=== PATIENT | male | born 1980 | race Caucasian/White ===

== ENCOUNTER 2019-01-27 12:58 | Emergency (ER) | payer OTHER ==
[2019-01-27] MEDS ORDERED: DIPHENHYDRAMINE 25 MG TAB/CAP ONE (13:43)
[2019-01-27] MEDS ORDERED: SMZ./TMP. 800/160 MG TABLET ONE (13:43)
[2019-01-27] MEDS ORDERED: FAMOTIDINE 20 MG TAB ONE (13:44)
[2019-01-27] MEDS ORDERED: DOXYCYCLINE 100 MG CAP PO ONE (13:44)
[2019-01-27] MEDS ORDERED: predniSONE 20 MG TAB ONE (13:44)
--- NOTE | 2019-01-27 14:46 | ER ---
Nurse's Notes [facility] Name: Catalino Amaro III Age: 38 yrs Sex: Male : 1980 Arrival Date: 01/27/2019 Time: 13:00 Bed 13 Private MD: Diagnosis: Impetigo;Allergic contact dermatitis;Irritant contact dermatitis;Cellulitis and acute lymphangitis of other parts of limb Presentation: 01/27 13:02 Presenting complaint: Patient states: exposed to poison maryam a week ago. c/o rash and sv swelling to the RLE. Transition of care: patient was not received from another setting of care. Onset of symptoms was January 18, 2019. Risk Assessment: Do you want to hurt yourself or someone else? Patient reports no desire to harm self or others. Care prior to arrival: None. 13:02 Method Of Arrival: Ambulatory sv 13:02 Acuity: TIMA 4 sv 15:29 Initial Sepsis Screen: Does the patient meet any 2 criteria? No. Patient's initial bp sepsis screen is negative. Does the patient have a suspected source of infection? No. Patient's initial sepsis screen is negative. Triage Assessment: 13:02 General: Appears in no apparent distress. uncomfortable, Behavior is calm, cooperative, sv appropriate for age. Neuro: Level of Consciousness is awake, alert, obeys commands, Gait is steady. Respiratory: Respiratory effort is even, unlabored, Respiratory pattern is regular, symmetrical. Derm: Reports rash. Historical: - Allergies: 13:03 No Known Allergies; sv - PMHx: 13:03 None; sv - PSHx: 13:03 cataract; sv - Immunization history:: Adult Immunizations up to date. - Social history:: Smoking status: Patient/guardian denies using tobacco. - Ebola Screening: : No symptoms or risks identified at this time. - Family history:: not pertinent. Screenin:40 Abuse screen: Denies threats or abuse. Denies injuries from another. Nutritional bp screening: No deficits noted. Tuberculosis screening: No symptoms or risk factors identified. Fall Risk None identified. Assessment: 13:10 General: SEE TRIAGE NOTE. bp 15:28 Reassessment: PT D/C HOME AMBULATORY, DX WITH IMPETIGO. bp Vital Signs: 13:03 BP 142 / 92; Pulse 78; Resp 16; Temp 98.5; Pulse Ox 98% ; Weight 95.25 kg; Height 5 ft. sv 11 in. (180.34 cm); 15:00 BP 137 / 89; Pulse 85; Resp 17; Temp 98; Pulse Ox 98% ; bp 13:03 Body Mass Index 29.29 (95.25 kg, 180.34 cm) ED Course: 13:00 Patient arrived in ED. as 13:03 Triage completed. sv 13:03 Arm band placed on. 13:09 Donavon Malik MD is Attending Physician. [facility] 13:30 Kavin Carlos, RN is Primary Nurse. bp 13:40 Patient has correct armband on for positive identification. Bed in low position. Call bp light in reach. Side rails up X2. 14:54 US Extremity Venous Unilateral Ltd In Process Unspecified. EDMS 15:28 No provider procedures requiring assistance completed. Patient did not have IV access bp during this emergency room visit. Administered Medications: 13:40 Drug: Doxycycline 100 mg Route: PO; bp 15:32 Follow up: Response: No adverse reaction bp 13:40 Drug: Bactrim (160 mg-800 mg (DS) 1 tablet Route: PO; bp 15:31 Follow up: Response: No adverse reaction bp 13:40 Drug: predniSONE 60 mg Route: PO; bp 15:31 Follow up: Response: No adverse reaction bp 13:40 Drug: Pepcid 40 mg Route: PO; bp 15:30 Follow up: Response: No adverse reaction bp 13:40 Drug: Benadryl 50 mg Route: PO; bp 15:30 Follow up: Response: No adverse reaction bp Outcome: 14:44 Discharge ordered by . [facility] 15:29 Discharged to home ambulatory. bp 15:29 Condition: stable 15:29 Discharge instructions given to patient, Instructed on discharge instructions, follow up and referral plans. medication usage, Demonstrated understanding of instructions, follow-up care, medications, Prescriptions given X 4. 15:32 Patient left the ED. bp Signatures: Dispatcher [employer] Atiya Carroll RN RN sv Anderson, Corey, MD MD cha Martinez, Amelia as Kavin Carlso, RN RN bp Corrections: (The following items were deleted from the chart) 13:05 13:03 Pulse 78bpm; Resp 16bpm; Pulse Ox 98%; Temp 98.5F; 95.25 kg; Height 5 ft. 11 in.; sv BMI: 29.2; sv
--- NOTE | 2019-01-27 14:46 | EDPHYS ---
Physician Documentation [facility] Name: Catalino Amaro III Age: 38 yrs Sex: Male : 1980 Arrival Date: 01/27/2019 Time: 13:00 Bed 13 Private MD: ED Physician Donavon Malik HPI: 01/27 13:29 This 38 yrs old Male presents to ER via Ambulatory with complaints of Rash - felipe Poison Tonya. 13:29 The patient's rash thought to be caused by Dermatitis Contact allergy. The rash is felipe located on the right leg and left leg. The rash can be described as crusted, diffuse, erythematous, raised. Onset: The symptoms/episode began/occurred 1 week(s) ago. Associated signs and symptoms: Pertinent positives: burning sensation, itching, Pain. Severity of symptoms: At their worst the symptoms were mild moderate in the emergency department the symptoms are unchanged. Treatment given at home: Benadryl. The patient has not experienced similar symptoms in the past. Historical: - Allergies: 13:03 No Known Allergies; sv - PMHx: 13:03 None; sv - PSHx: 13:03 cataract; sv - Immunization history:: Adult Immunizations up to date. - Social history:: Smoking status: Patient/guardian denies using tobacco. - Ebola Screening: : No symptoms or risks identified at this time. - Family history:: not pertinent. ROS: 13:29 Constitutional: Negative for fever, chills, and weight loss, Eyes: Negative for injury, felipe pain, redness, and discharge, ENT: Negative for injury, pain, and discharge, Neck: Negative for injury, pain, and swelling, Cardiovascular: Negative for chest pain, palpitations, and edema, Respiratory: Negative for shortness of breath, cough, wheezing, and pleuritic chest pain, Abdomen/GI: Negative for abdominal pain, nausea, vomiting, diarrhea, and constipation, Back: Negative for injury and pain, : Negative for injury, bleeding, discharge, and swelling, Neuro: Negative for headache, weakness, numbness, tingling, and seizure, Psych: Negative for depression, anxiety, suicide ideation, homicidal ideation, and hallucinations, Allergy/Immunology: Negative for hives, rash, and allergies, Endocrine: Negative for neck swelling, polydipsia, polyuria, polyphagia, and marked weight changes, Hematologic/Lymphatic: Negative for swollen nodes, abnormal bleeding, and unusual bruising. 13:29 MS/extremity: Positive for pain, rash, swelling, tenderness, of the right leg and left leg. Exam: 13:29 Constitutional: This is a well developed, well nourished patient who is awake, alert, felipe and in no acute distress. Head/Face: Normocephalic, atraumatic. Eyes: Pupils equal round and reactive to light, extra-ocular motions intact. Lids and lashes normal. Conjunctiva and sclera are non-icteric and not injected. Cornea within normal limits. Periorbital areas with no swelling, redness, or edema. ENT: Nares patent. No nasal discharge, no septal abnormalities noted. Tympanic membranes are normal and external auditory canals are clear. Oropharynx with no redness, swelling, or masses, exudates, or evidence of obstruction, uvula midline. Mucous membranes moist. Neck: Trachea midline, no thyromegaly or masses palpated, and no cervical lymphadenopathy. Supple, full range of motion without nuchal rigidity, or vertebral point tenderness. No Meningismus. Chest/axilla: Normal chest wall appearance and motion. Nontender with no deformity. No lesions are appreciated. Cardiovascular: Regular rate and rhythm with a normal S1 and S2. No gallops, murmurs, or rubs. Normal PMI, no JVD. No pulse deficits. Respiratory: Lungs have equal breath sounds bilaterally, clear to auscultation and percussion. No rales, rhonchi or wheezes noted. No increased work of breathing, no retractions or nasal flaring. Abdomen/GI: Soft, non-tender, with normal bowel sounds. No distension or tympany. No guarding or rebound. No evidence of tenderness throughout. Back: No spinal tenderness. No costovertebral tenderness. Full range of motion. Male : Normal genitalia with no discharge or lesions. Skin: Warm, dry with normal turgor. Normal color with no rashes, no lesions, and no evidence of cellulitis. Neuro: Awake and alert, GCS 15, oriented to person, place, time, and situation. Cranial nerves II-XII grossly intact. Motor strength 5/5 in all extremities. Sensory grossly intact. Cerebellar exam normal. Normal gait. Psych: Awake, alert, with orientation to person, place and time. Behavior, mood, and affect are within normal limits. 13:29 Musculoskeletal/extremity: Extremities: decreased ROM, pain, rash, swelling, tenderness, ROM: full active range of motion, full passive range of motion, Circulation is intact in all extremities. Sensation intact. Compartment Syndrome exam of affected extremity: is normal. no numbness, no tingling, no sensation deficit, no palor, no weak pulses, DVT Exam: negative Homans' sign noted on exam, no appreciated bluish discoloration, pain, swelling, tenderness, erythema, increased warmth. Vital Signs: 13:03 BP 142 / 92; Pulse 78; Resp 16; Temp 98.5; Pulse Ox 98% ; Weight 95.25 kg; Height 5 ft. sv 11 in. (180.34 cm); 15:00 BP 137 / 89; Pulse 85; Resp 17; Temp 98; Pulse Ox 98% ; bp 13:03 Body Mass Index 29.29 (95.25 kg, 180.34 cm) sv MDM: 13:09 Patient medically screened. [facility] 13:33 Data reviewed: vital signs, nurses notes, radiologic studies. [facility] 01/27 13:26 Order name: Extremity Venous Unilateral Ltd [facility] 01/27 13:26 Order name: Wound Care; Complete Time: 13:59 [facility] Administered Medications: 13:40 Drug: Doxycycline 100 mg Route: PO; bp 15:32 Follow up: Response: No adverse reaction bp 13:40 Drug: Bactrim (160 mg-800 mg (DS) 1 tablet Route: PO; bp 15:31 Follow up: Response: No adverse reaction bp 13:40 Drug: predniSONE 60 mg Route: PO; bp 15:31 Follow up: Response: No adverse reaction bp 13:40 Drug: Pepcid 40 mg Route: PO; bp 15:30 Follow up: Response: No adverse reaction bp 13:40 Drug: Benadryl 50 mg Route: PO; bp 15:30 Follow up: Response: No adverse reaction bp Disposition: 01/27/19 14:44 Discharged to Home. Impression: Impetigo, Allergic contact dermatitis, Irritant contact dermatitis, Cellulitis and acute lymphangitis of other parts of limb. - Condition is Stable. - Discharge Instructions: Contact Dermatitis, Poison Tonya Dermatitis, Poison [place] Dermatitis, Cellulitis, Adult, [id number], Poison Tonya Dermatitis, [id number], Contact Dermatitis, [id number], Poison [place] Dermatitis, [id number]. - Prescriptions for Bactroban 2 % Topical Ointment - Apply to affected area 1 application by TOPICAL route every 12 hours; 30 gram. Benadryl 25 mg Oral Capsule - take 1 capsule by ORAL route every 6 hours As needed; 30 tablet. Pepcid 20 mg Oral Tablet - take 1 tablet by ORAL route every 12 hours for 10 days; 20 tablet. Doxycycline Hyclate 100 mg Oral Tablet - take 1 tablet by ORAL route every 12 hours; 20 tablet. Bactrim DS 800- 160 mg Oral Tablet - take 1 tablet by ORAL route every 12 hours for 10 days; 20 tablet. Prednisone 20 mg Oral Tablet - take 2 tablet by ORAL route once daily for 5 days; 10 tablet. - Medication Reconciliation Form, Thank You Letter, Antibiotic Education, Prescription Opioid Use form. - Follow up: Private Physician; When: 2 - 3 days; Reason: Recheck today's complaints, Continuance of care, Re-evaluation by your physician. - Problem is new. - Symptoms have improved. Signatures: Dispatcher [employer] EDAtiya Lock, ANTONIO RN Donavon Decker MD MD cha Peltier, Brian, RN RN bp Corrections: (The following items were deleted from the chart) 15:32 14:44 01/27/2019 14:44 Discharged to Home. Impression: Impetigo; Allergic contact bp dermatitis; Irritant contact dermatitis; Cellulitis and acute lymphangitis of other parts of limb. Condition is Stable. Discharge Instructions: Contact Dermatitis, Poison Tonya Dermatitis, Poison [place] Dermatitis, Cellulitis, Adult, [id number], Poison Tonya Dermatitis, [id number], Contact Dermatitis, [id number], Poison [place] Dermatitis, [id number]. Prescriptions for Bactroban 2 % Topical Ointment - Apply to affected area 1 application by TOPICAL route every 12 hours; 30 gram, Benadryl 25 mg Oral Capsule - take 1 capsule by ORAL route every 6 hours As needed; 30 tablet, Pepcid 20 mg Oral Tablet - take 1 tablet by ORAL route every 12 hours for 10 days; 20 tablet, Doxycycline Hyclate 100 mg Oral Tablet - take 1 tablet by ORAL route every 12 hours; 20 tablet, Bactrim DS 800-160 mg Oral Tablet - take 1 tablet by ORAL route every 12 hours for 10 days; 20 tablet, Prednisone 20 mg Oral Tablet - take 2 tablet by ORAL route once daily for 5 days; 10 tablet. and Forms are Medication Reconciliation Form, Thank You Letter, Antibiotic Education, Prescription Opioid Use. Follow up: Private Physician; When: 2 - 3 days; Reason: Recheck today's complaints, Continuance of care, Re-evaluation by your physician. Problem is new. Symptoms have improved. felipe
--- NOTE | 2019-01-27 15:38 | RAD REPORT ---
EXAM DESCRIPTION: US - Extremity Venous Uni Ltd - 01/27/2019 2:53 pm CLINICAL HISTORY: Right leg pain and swelling COMPARISON: None. TECHNIQUE: Real-time sonographic evaluation of the right lower extremity deep venous systems was per formed. FINDINGS: Normal compressibility, flow augmentation, phasic flow and spontaneous flow are identified in the right lower extremity common femoral, superficial femoral, popliteal and posterior tibial vei ns. No intraluminal filling defects seen. IMPRESSION: No DVT in the right lower extremity.
== END 2019-01-27 15:32 | disposition home or self-care (01) ==
LOC: ER 12:58
DX: L01.00 Impetigo, unspecified (principal); L23.7 Allergic contact dermatitis due to plants, except food; L24.7 Irritant contact dermatitis due to plants, except food; L03.116 Cellulitis of left lower limb; L03.115 Cellulitis of right lower limb; L03.126 Acute lymphangitis of left lower limb; L03.125 Acute lymphangitis of right lower limb
CPT/HCPCS: 93971; 99283; J7512